=== PATIENT | male | born 1955 | race Caucasian/White ===

== ENCOUNTER 2017-07-23 07:37 | Day surgery (SDC) | payer OTHER ==
[~2017-07-23] VITALS: Ht 190.5 cm; Wt 80.7 kg
[~2017-07-23 07:37] MED LIST: ADULT LOW DOSE81 MG PO; CHANTIX1 MG PO; MELATIN3 MG PO; NICOTINE GUM4 MG BUCCAL
[2017-08-05] MEDS ORDERED: PREDNISOLONE ACE5 ML OPTH (13:07)
== END 2017-07-23 10:15 | disposition home or self-care (01) ==
LOC: OPS 07:37 → DSVR 07:37 → OPS 09:00 → DS 09:00 → OPS 10:15
PROVIDERS: Ophthalmology
PROC: 08RK3JZ Replacement of Left Lens with Synthetic Substitute, Percutaneous Approach (ICD-10-PCS; principal; 2017-07-23 09:00)
DX: H25.812 Combined forms of age-related cataract, left eye (principal); F17.210 Nicotine dependence, cigarettes, uncomplicated; Z79.82 Long term (current) use of aspirin
CPT/HCPCS: J2250

== ENCOUNTER 2017-08-06 07:45 | Day surgery (SDC) | payer OTHER ==
[~2017-08-06] VITALS: Ht 190.5 cm; Wt 80.7 kg
[~2017-08-06 07:45] MED LIST changes: +PREDNISOLONE ACE5 ML OPTH
== END 2017-08-06 10:23 | disposition home or self-care (01) ==
LOC: OPS 07:45 → DSVR 07:45 → DS 09:00 → OPS 09:15 → DS 09:15 → OPS 10:23
PROVIDERS: Ophthalmology
PROC: 08RJ3JZ Replacement of Right Lens with Synthetic Substitute, Percutaneous Approach (ICD-10-PCS; principal; 2017-08-06 09:15)
DX: H25.11 Age-related nuclear cataract, right eye (principal); F17.210 Nicotine dependence, cigarettes, uncomplicated; Z79.82 Long term (current) use of aspirin
CPT/HCPCS: J2250